=== PATIENT | male | born 1985 | race Caucasian/White ===

== ENCOUNTER 2023-12-05 00:55 | Emergency (ER) | payer OTHER ==
[~2023-12-05] VITALS: Ht 180.3 cm; Wt 90.7 kg
[2023-12-05 07:50] VITALS: BP 128/80
== END 2023-12-05 07:52 | disposition home or self-care (01) ==
LOC: ER 00:55
DX: S01.112A Laceration without foreign body of left eyelid and periocular area, initial encounter (principal); W01.10XA Fall on same level from slipping, tripping and stumbling with subsequent striking against unspecified object, initial encounter; F17.200 Nicotine dependence, unspecified, uncomplicated
CPT/HCPCS: 70450

== ENCOUNTER 2024-02-22 20:44 | Inpatient (IN) | payer OTHER ==
[~2024-02-22] VITALS: Ht 180.3 cm; Wt 84.8 kg
[2024-02-22 22:16] LABS: BASOPHILS ABSOLUTE AUTO 0.12 K/mm3 (0.00-0.23); BASOPHILS PERCENT AUTO 1 % (0-2); EOSINOPHILS ABSOLUTE AUTO 0.23 K/mm3 (0.00-0.68); EOSINOPHILS PERCENT AUTO 2 % (0-6); Hematocrit 29.3 % (37.0-53.0); Hemoglobin 10.3 g/dL (13.5-17.5); IMMATURE GRAN ABSOLUTE AUTO 0.11 K/mm3 (0.00-0.10); IMMATURE GRAN PERCENT AUTO 1 % (0-1); LYMPHOCYTES ABSOLUTE AUTO 4.19 K/mm3 (0.84-5.20); LYMPHOCYTES PERCENT AUTO 29 % (21-46); MONOCYTES ABSOLUTE AUTO 1.22 K/mm3 (0.16-1.47); MONOCYTES PERCENT AUTO 8 % (4-13); Mean Corpuscular HGB 35.2 pg (26.0-34.0); Mean Corpuscular HGB Conc 35.2 g/dL (31.5-36.5); Mean Corpuscular Volume 100 fL (80-100); Mean Platelet Volume 10.4 fL (9.1-12.4); NEUTROPHILS ABSOLUTE AUTO 8.71 K/mm3 (1.96-9.15); NEUTROPHILS PERCENT AUTO 60 % (41-73); Platelet Count 120 K/mm3 (150-400); RDW Coefficient Variation 15.1 % (11.7-14.2); Red Blood Cell Count 2.93 M/mm3 (4.30-5.90); White Blood Cell Count 14.58 K/mm3 (4.00-11.30)
[2024-02-22 22:31] LABS: Albumin, Blood 2.1 g/dL (3.4-5.0); Albumin/Globulin Ratio 0.4 (0.8-1.8); Bilirubin, Total 5.5 mg/dL (0.1-1.0); Bun/Creatinine Ratio 11.9 (12.0-20.0); Creatinine, Blood 0.84 mg/dL (0.60-1.20); Globulin, Blood 5.4 g/dL (2.2-4.0); Potassium, Blood 3.4 mmol/L (3.5-5.5); Total Protein, Blood 7.5 g/dL (6.4-8.2)
[2024-02-23] MEDS ORDERED: Potassium Chloride 20 MEQ/15 ML UDC PO ONE (00:40)
[2024-02-23 01:03] LABS: C-Reactive Protein, High Sens. 13.1 mg/dL (0.000-3.000)
[2024-02-23] MEDS ORDERED: CefTRIAXone Sodium 2,000 MG in NS 100 ML IV ONE (02:10)
[2024-02-23 02:15] LABS: International Normalized Ratio 1.82; Prothrombin Time Results 18.6 Sec (9.7-11.5)
[2024-02-23] MEDS ORDERED: Vancomycin HCL 2,000 MG in NS 500 ML IV ONE (02:30)
[2024-02-23] MEDS ORDERED: Magnesium Hydroxide Conc 10 ML UDC PO PRN (04:15)
[2024-02-23] MEDS ORDERED: Bisacodyl 10 MG Supp PR PRN (04:15)
[2024-02-23] MEDS ORDERED: FLU VACC TS2024-25(6MOS UP)/PF 45 MCG/0.5 ML SYRINGE IM ONE (04:15)
[2024-02-23] MEDS ORDERED: Acetaminophen 325 MG TABLET PO PRN (04:20)
[2024-02-23 05:10] VITALS: BP 108/83
[2024-02-23 05:45] LABS: BASOPHILS ABSOLUTE AUTO 0.12 K/mm3 (0.00-0.23); BASOPHILS PERCENT AUTO 1 % (0-2); EOSINOPHILS ABSOLUTE AUTO 0.22 K/mm3 (0.00-0.68); EOSINOPHILS PERCENT AUTO 2 % (0-6); Hematocrit 28.8 % (37.0-53.0); IMMATURE GRAN ABSOLUTE AUTO 0.07 K/mm3 (0.00-0.10); IMMATURE GRAN PERCENT AUTO 1 % (0-1); LYMPHOCYTES ABSOLUTE AUTO 3.34 K/mm3 (0.84-5.20); LYMPHOCYTES PERCENT AUTO 26 % (21-46); MONOCYTES PERCENT AUTO 8 % (4-13); Mean Corpuscular HGB 34.7 pg (26.0-34.0); Mean Corpuscular HGB Conc 34.7 g/dL (31.5-36.5); Mean Corpuscular Volume 100 fL (80-100); Mean Platelet Volume 11.1 fL (9.1-12.4); NEUTROPHILS ABSOLUTE AUTO 8.07 K/mm3 (1.96-9.15); NEUTROPHILS PERCENT AUTO 63 % (41-73); Platelet Count 111 K/mm3 (150-400); RDW Coefficient Variation 15.1 % (11.7-14.2); Red Blood Cell Count 2.88 M/mm3 (4.30-5.90); White Blood Cell Count 12.82 K/mm3 (4.00-11.30)
--- NOTE | 2024-02-23 05:50 | NUR ---
ADMIT NOTE PT ARRIVED TO FLOOR VIA GURNEY. PT ORIENTED TO UNIT. PERSONAL POSSESSIONS WITH PT. CALENDER WIND UP TENDER HAS BEEN ORDERED. IV ANTIB RX STILL INFUSING. CALL BUTTON WITHIN REACH.
[2024-02-23] MEDS ORDERED: Ketorolac Tromethamine 15mg Vial IV PRN (06:50)
[2024-02-23] MEDS ORDERED: Albumin (Human) 25gm/100ml 100 ML IV ONE (06:50)
[2024-02-23 07:13] LABS: Albumin, Blood 1.9 g/dL (3.4-5.0); Albumin/Globulin Ratio 0.4 (0.8-1.8); Bilirubin, Total 5.2 mg/dL (0.1-1.0); Bun/Creatinine Ratio 12.8 (12.0-20.0); Calcium, Blood 7.6 mg/dL (8.5-10.1); Creatinine, Blood 0.78 mg/dL (0.60-1.20); Globulin, Blood 5.1 g/dL (2.2-4.0); Potassium, Blood 3.3 mmol/L (3.5-5.5)
[2024-02-23 07:33] VITALS: BP 120/77
[2024-02-23] MEDS ORDERED: Sennosides 8.6 MG Tab PO SCH (09:00)
[2024-02-23] MEDS ORDERED: Lactobacil 2-S.Thermo-Bifido 1 1 Cap PO SCH (09:00)
[2024-02-23] MEDS ORDERED: Docusate Sodium 100 MG Cap PO SCH (09:00)
[2024-02-23] MEDS ORDERED: Vancomycin HCL 1,250 MG in NS 250 ML IV SCH (11:00)
[2024-02-23 12:09] LABS: Body Fluid Crystals NEG (NEGATIVE)
[2024-02-23] MEDS ORDERED: NS 250 ML IV PRN (12:20)
[2024-02-23 12:26] LABS: BODY FLUID RBC 0.048 M/mm3 (0-0); RBC Count, Synovial Fluid 48000 /mm3 (0-0); WBC Count, Synovial Fluid 177 /mm3 (0-180)
[2024-02-23] MEDS ORDERED: Magnesium Sulf 2 GM/Water 50ML 50 ML IV ONE (12:55)
[2024-02-23] MEDS ORDERED: Potassium Chl 20MEQ/Water100ML 100 ML IV SCH (12:55)
[2024-02-23 13:00] LABS: Appearance, Synovial Fluid Cloudy (Clear); Color, Synovial Fluid Red (None-P Yel); Eos, Synovial Fluid 2 % (0-2); Lymphs, Synovial Fluid 11 % (0-15); Monocytes/Macrophages, Synovia 10 % (0-65); Neutrophils, Synovial Fluid 77 % (0-24)
[2024-02-23 15:17] VITALS: BP 130/76
[2024-02-23 19:32] VITALS: BP 142/74
[2024-02-23] MEDS ORDERED: CefTRIAXone Sodium 1,000 MG in NS 100 ML IV SCH (21:00)
[2024-02-24 02:12] VITALS: BP 108/90
[2024-02-24 02:33] LABS: BASOPHILS ABSOLUTE AUTO 0.13 K/mm3 (0.00-0.23); BASOPHILS PERCENT AUTO 1 % (0-2); EOSINOPHILS ABSOLUTE AUTO 0.32 K/mm3 (0.00-0.68); EOSINOPHILS PERCENT AUTO 3 % (0-6); Hematocrit 29.1 % (37.0-53.0); Hemoglobin 10.1 g/dL (13.5-17.5); IMMATURE GRAN ABSOLUTE AUTO 0.06 K/mm3 (0.00-0.10); IMMATURE GRAN PERCENT AUTO 1 % (0-1); LYMPHOCYTES ABSOLUTE AUTO 2.44 K/mm3 (0.84-5.20); LYMPHOCYTES PERCENT AUTO 26 % (21-46); MONOCYTES PERCENT AUTO 6 % (4-13); Mean Corpuscular HGB 34.9 pg (26.0-34.0); Mean Corpuscular HGB Conc 34.7 g/dL (31.5-36.5); Mean Corpuscular Volume 101 fL (80-100); Mean Platelet Volume 10.7 fL (9.1-12.4); NEUTROPHILS ABSOLUTE AUTO 5.99 K/mm3 (1.96-9.15); NEUTROPHILS PERCENT AUTO 63 % (41-73); Platelet Count 106 K/mm3 (150-400); RDW Coefficient Variation 14.9 % (11.7-14.2); RDW Standard Deviation 54.9 fL (35.1-46.3); Red Blood Cell Count 2.89 M/mm3 (4.30-5.90); White Blood Cell Count 9.54 K/mm3 (4.00-11.30)
[2024-02-24 02:55] LABS: Vancomycin, Trough 16.2 ug/mL (5.0-10.0)
[2024-02-24 03:32] LABS: Albumin/Globulin Ratio 0.4 (0.8-1.8); Bilirubin, Total 6.3 mg/dL (0.1-1.0); Bun/Creatinine Ratio 11.5 (12.0-20.0); Calcium, Blood 7.7 mg/dL (8.5-10.1); Creatinine, Blood 0.7 mg/dL (0.60-1.20); Globulin, Blood 5.1 g/dL (2.2-4.0); Potassium, Blood 3.7 mmol/L (3.5-5.5); Total Protein, Blood 7.1 g/dL (6.4-8.2)
--- NOTE | 2024-02-24 03:58 | NUR ---
SUMMARY: PT A/OX4, CALLS APPROPRIATELY TO SPECIFY NEEDS AND IS PLEASANT AND COOPERATIVE W/CARE. HE'S UP INDEPENDENTLY IN ROOM AND AMBULATES HALLS AD EULA. L.KNEE REMAINS ERYTHEMATOUS AND SWOLLEN W/PAIN THAT LIMITS ROM AND BLE EDEMA PERSISTS FROM KNEES DOWN, LLE>RLE. PT REFUSED AVAILABLE PAIN MEDS AND IV ABX BEING RECEIVED PER EMAR. CIWA 0. HE'S NSR AT 80'S BPM. VSS/AFEBRILE AND NO ACUTE CHANGES. WCTM AND REPORT TO DAY RN.
[2024-02-24 08:23] VITALS: BP 145/76
[2024-02-24] MEDS ORDERED: Enoxaparin 40 MG/0.4 ML SYR SC SCH (09:00)
[2024-02-24] MEDS ORDERED: OxyCODONE HCL 5 MG TAB PO PRN (10:40)
[2024-02-24] MEDS ORDERED: OXYC5 PO (12:15)
[2024-02-24] MEDS ORDERED: SULTRIDS PO (12:16)
--- NOTE | 2024-02-24 14:14 | NUR ---
DISCHARGE PT DISCHARGED HOME. PT SENT WITH HARD SCRIPT FOR OXYCODONE. COPY IN CHART. PT EDUCATED ON NEW MEDICATIONS AND FOLLOW UP APPOINTMENTS NEEDED. PT EDUCATED THAT HE MAY NEED TO FOLLOW UP IN AN URGENT CARE WHILE HE WAITS TO BE ESTABLISHED WITH A PCP. PT STATES HE UNDERSTANDS. NO OTHER ACUTE CHANGES IN ASSESSMENT AT THIS TIME. PT REFUSED WHEELCHAIR RIDE OUT. DRIVEN HOME BY FRIEND.
== END 2024-02-24 14:11 | disposition home or self-care (01) | DRG 872 ==
LOC: ER 20:44 → MEDS 02-23 04:10 → ENPENDDIS 02-24 11:32 → MEDS 02-24 14:11
PROVIDERS: Emergency Medicine; Family Medicine; Nurse Practitioner Family; Student in an Organized Health Care Education/Training Program; ADMIT Internal Medicine
PROC: 0S9D3ZX Drainage of Left Knee Joint, Percutaneous Approach, Diagnostic (ICD-10-PCS; principal; 2024-02-23)
PROC: 3E03329 Introduction of Other Anti-infective into Peripheral Vein, Percutaneous Approach (ICD-10-PCS; 2024-02-23)
DX: A41.9 Sepsis, unspecified organism (principal); M00.9 Pyogenic arthritis, unspecified; R18.8 Other ascites; K80.12 Calculus of gallbladder with acute and chronic cholecystitis without obstruction; E87.6 Hypokalemia; E83.42 Hypomagnesemia; M79.672 Pain in left foot; G89.29 Other chronic pain; K74.60 Unspecified cirrhosis of liver; K76.0 Fatty (change of) liver, not elsewhere classified; R65.20 Severe sepsis without septic shock; F17.200 Nicotine dependence, unspecified, uncomplicated
CPT/HCPCS: 20610; 36415; 73562-LT; 73630; 76705; 80053; 80202; 83605; 83735; 84100; 85025; 85610; 85651; 85730; 86140; 86141; 87040; 87070; 87075; 87205; 89051; 89060; 93971; 96365-59; 96367-59; 99285-25; A9270; J0696; J1885; J3370; J3475; J3480; J7040; J7050; P9047

== ENCOUNTER 2024-05-02 08:39 | Inpatient (IN) | payer OTHER ==
[~2024-05-02] VITALS: Ht 180.3 cm; Wt 90.1 kg
[~2024-05-02 08:39] MED LIST: OXYC5 PO; SULTRIDS PO
[2024-05-02 10:41] LABS: BASOPHILS ABSOLUTE AUTO 0.15 K/mm3 (0.00-0.23); BASOPHILS PERCENT AUTO 1 % (0-2); EOSINOPHILS ABSOLUTE AUTO 0.28 K/mm3 (0.00-0.68); EOSINOPHILS PERCENT AUTO 2 % (0-6); Hematocrit 31.4 % (37.0-53.0); Hemoglobin 10.7 g/dL (13.5-17.5); IMMATURE GRAN ABSOLUTE AUTO 0.11 K/mm3 (0.00-0.10); IMMATURE GRAN PERCENT AUTO 1 % (0-1); LYMPHOCYTES ABSOLUTE AUTO 2.55 K/mm3 (0.84-5.20); LYMPHOCYTES PERCENT AUTO 22 % (21-46); MONOCYTES ABSOLUTE AUTO 0.69 K/mm3 (0.16-1.47); MONOCYTES PERCENT AUTO 6 % (4-13); Mean Corpuscular HGB 35.5 pg (26.0-34.0); Mean Corpuscular HGB Conc 34.1 g/dL (31.5-36.5); Mean Corpuscular Volume 104 fL (80-100); Mean Platelet Volume 10.1 fL (9.1-12.4); NEUTROPHILS ABSOLUTE AUTO 8.04 K/mm3 (1.96-9.15); NEUTROPHILS PERCENT AUTO 68 % (41-73); Platelet Count 86 K/mm3 (150-400); RDW Standard Deviation 59.2 fL (35.1-46.3); Red Blood Cell Count 3.01 M/mm3 (4.30-5.90); White Blood Cell Count 11.82 K/mm3 (4.00-11.30)
[2024-05-02 10:56] LABS: Albumin, Blood 1.9 g/dL (3.4-5.0); Albumin/Globulin Ratio 0.3 (0.8-1.8); Bilirubin, Total 12.6 mg/dL (0.1-1.0); Bun/Creatinine Ratio 10.8 (12.0-20.0); Calcium, Blood 7.8 mg/dL (8.5-10.1); Creatinine, Blood 0.83 mg/dL (0.60-1.20); Globulin, Blood 6.3 g/dL (2.2-4.0); International Normalized Ratio 2.49; Potassium, Blood 2.8 mmol/L (3.5-5.5); Prothrombin Time Results 24.9 Sec (9.7-11.5); Total Protein, Blood 8.2 g/dL (6.4-8.2)
[2024-05-02] MEDS ORDERED: Pantoprazole Sodium 40 MG Injection IV ONE (13:10)
[2024-05-02] MEDS ORDERED: Pantoprazole Sodium 40 MG in NS 50 ML IV SCH (13:10)
[2024-05-02] MEDS ORDERED: Potassium Chl 20MEQ/Water100ML 100 ML IV ONE (13:50)
[2024-05-02] MEDS ORDERED: Octreotide Acetate 50 MCG in NS 50 ML IV ONE (14:00)
[2024-05-02] MEDS ORDERED: CefTRIAXone Sodium 1,000 MG in NS 100 ML IV ONE (14:05)
[2024-05-02] MEDS ORDERED: Octreotide Acetate 500 MCG in NS 250 ML IV SCH (14:05)
[2024-05-02] MEDS ORDERED: Ondansetron HCl 2 MG / ML 2ML Vial IV PRN (15:55)
[2024-05-02] MEDS ORDERED: TraZODone HCl 50 MG Tab PO PRN (15:55)
[2024-05-02] MEDS ORDERED: NS KCl 20mEq 1,000 ML IV SCH (15:55)
[2024-05-02] MEDS ORDERED: FLU VACC TS2024-25(6MOS UP)/PF 45 MCG/0.5 ML SYRINGE IM PRN (15:55)
[2024-05-02] MEDS ORDERED: Metoclopramide HCl 5MG / ML 2ML Vial IV PRN (16:00)
[2024-05-02 16:52] VITALS: BP 132/75
--- NOTE | 2024-05-02 18:25 | NUR ---
ADMIT TO PCU 18: PATIENT ABLE TO STAND AND TRANSFER TO BED. ALERT AND ORIENTED X4. WEARING GLASSES. DENIES PAINS AT THIS TIME. BILATERAL LOWER EXTREMITY SCABBING, SEE CHART PHOTO. TELE SHOWING SR WITH HR 80'S. DENIES CHEST PAIN/PRESSURE/PALPITATIONS. SEE CHARTED VITALS. ON ROOM AIR SATING ABOVE 95%. DENIES SOB. BOWEL TONES PRESENT. ASCITES NOTED. COMPLAINS OF 3/10 ABDOMINAL PAIN WHEN SITTING STRAIGHT UP, OTHERWISE PAIN RELIEVED WHEN RECLINED. NO BOWEL MOVEMENT ON UNIT AT THIS TIME. URINAL PROVIDED. PROTONIX, POTASSIUM AND SANDOSTATIN INFUSING AT THIS TIME. LAB IN TO DRAW. DR. PATTERSON AT BEDSIDE DURING ADMISSION AND PLAN FOR PATIENT TO EAT TONIGHT AND WATER TOMORROW PRIOR TO SCOPE. DR. PATTERSON TO PLACE ORDERS. CALL LIGHT IN REACH. PATIENT DENIES NEEDS.
[2024-05-02 19:55] VITALS: BP 102/63
--- NOTE | 2024-05-02 20:39 | NUR ---
ASSUMED CARE PT IS A&O X4; SPO2 >92% ON RA; MAP >65; RATE 80-90'S. PT DENIES CP, SOB, AND NAUSEA AT THIS TIME. C/O MILD 1-2/10 ABDOMINAL PAIN WHEN LYING FAT, WORSE WHEN SITTING UP; TENDER W/ PALPATION. PROTONIX, OCTREOTIDE, AND NS W/ KCL INFUSING PER EMAR. PT RESTING QUIETLY AT THIS TIME.
[2024-05-02 23:00] VITALS: BP 106/76
--- NOTE | 2024-05-02 23:30 | NUR ---
UPDATE PHARMACY CONSULTED FOR POTENTIAL PROTONIX INFILTRATION; ORDERS FOR ELEVATION AND WARM COMPRESS. DR RIVERS AWARE. NO REDNESS/PAIN NOTED FROM PT.
[2024-05-02] MEDS ORDERED: Acetaminophen 325 MG TABLET PO PRN (23:40)
[2024-05-03] VITALS (17 sets, daily range): BP systolic 88–129; BP diastolic 58–87
[2024-05-03 04:22] LABS: BASOPHILS ABSOLUTE AUTO 0.12 K/mm3 (0.00-0.23); BASOPHILS PERCENT AUTO 1 % (0-2); EOSINOPHILS ABSOLUTE AUTO 0.36 K/mm3 (0.00-0.68); EOSINOPHILS PERCENT AUTO 4 % (0-6); Hematocrit 26.5 % (37.0-53.0); Hemoglobin 9.1 g/dL (13.5-17.5); Mean Corpuscular HGB Conc 34.3 g/dL (31.5-36.5); Mean Corpuscular Volume 105 fL (80-100); Mean Platelet Volume 10.4 fL (9.1-12.4); Platelet Count 77 K/mm3 (150-400); RDW Coefficient Variation 15.9 % (11.7-14.2); Red Blood Cell Count 2.53 M/mm3 (4.30-5.90); White Blood Cell Count 9.77 K/mm3 (4.00-11.30)
[2024-05-03 04:29] LABS: IMMATURE GRAN ABSOLUTE AUTO 0.08 K/mm3 (0.00-0.10); IMMATURE GRAN PERCENT AUTO 1 % (0-1); LYMPHOCYTES ABSOLUTE AUTO 2.66 K/mm3 (0.84-5.20); LYMPHOCYTES PERCENT AUTO 27 % (21-46); MONOCYTES ABSOLUTE AUTO 0.66 K/mm3 (0.16-1.47); MONOCYTES PERCENT AUTO 7 % (4-13); NEUTROPHILS ABSOLUTE AUTO 5.89 K/mm3 (1.96-9.15); NEUTROPHILS PERCENT AUTO 60 % (41-73)
[2024-05-03 04:38] LABS: Albumin, Blood 1.5 g/dL (3.4-5.0); Albumin/Globulin Ratio 0.3 (0.8-1.8); Bilirubin, Total 9.5 mg/dL (0.1-1.0); Bun/Creatinine Ratio 9.7 (12.0-20.0); Calcium, Blood 7.6 mg/dL (8.5-10.1); Creatinine, Blood 0.82 mg/dL (0.60-1.20); Globulin, Blood 5.1 g/dL (2.2-4.0); Magnesium, Blood 1.8 mg/dL (1.6-2.4); Potassium, Blood 3.9 mmol/L (3.5-5.5); Total Protein, Blood 6.6 g/dL (6.4-8.2)
[2024-05-03 04:47] LABS: International Normalized Ratio 2.69; Prothrombin Time Results 26.7 Sec (9.7-11.5)
--- NOTE | 2024-05-03 06:32 | NUR ---
SHIFT SUMMARY PT RESTING IN BED QUIETLY; ABDOMINAL PAIN UNCHANGED. VSS. PT HAD BM THIS AM AND WAS BLACK PER PT (PT FLUSHED BEFORE THIS RN COULD ASSESS). OCTREOTIDE, PROTONIX, AND NS KCL INFUSING PER EMAR.
--- NOTE | 2024-05-03 11:05 | NUR ---
PATIENT MADE AWARE THAT HE WILL BE NPO FOR THE PROCEDURE THIS AFTERNOON. PATIENT RESTING WITH EVEN AND UNLABORED RESPIRATIONS AND THE BED AT THE LOWEST POSITION WITH THE CALL LIGHT WITHIN REACH.
--- NOTE | 2024-05-03 12:47 | NUR ---
MD AT BEDSIDE AND ASSESSED PATIENT. PATIENT RESTING WITH EVEN AND UNLABORED BREATHING, BED AT LOWEST POSITION AND CALL LIGHT WITHIN REACH.
--- NOTE | 2024-05-03 13:34 | NUR ---
PATIENT LEFT FOR EGD.
[2024-05-03] MEDS ORDERED: Lactated Ringer's 1,000 ML IV SCH (13:35)
[2024-05-03] MEDS ORDERED: Midazolam HCl 1MG / ML 2ML Vial ONE (14:02)
[2024-05-03] MEDS ORDERED: propofoL 20 ML IV ONE (14:02)
[2024-05-03] MEDS ORDERED: Benzocaine Oral Spray 0.5ML UD ONE (14:09)
--- NOTE | 2024-05-03 14:22 | NUR ---
05/03/24 1422 Vandana Mathew CONFIRMED AND REVIEWED H&P, MEDCICATIONS, ALLERGIES, MEDICAL HISTORY, RESPIRATORY HISTORY, VITAL SIGNS, 3-LEAD EKG, CONSENTS, AND PHYSICIAN ORDERS. PATIENT CONFIRMS NPO STATUS AND AGREES WITH SCHEDULED PROCEDURE. MONITOR INTACT WITH CONTINUOUS PULSE OXIMETRY, CAPNOGRAPHY, 3-LEAD EKG, INTERMITTENT BP. SUPPLEMENTAL O2 TO BE TITRATED THROUGHOUT PROCEDURE TO MAINTAIN O2 SATURATION ABOVE 90%. PATIENT DETERMINED TO BE ASA APPROPRIATE FOR PROPOFOL SEDATION PRIOR TO START OF PROCEDURE BY DR. PATTERSON.
--- NOTE | 2024-05-03 16:43 | NUR ---
SHIFT SUMMARY: PATIENT IS MEDICAL WITHOUT TELE STATUS. IS ALERT AND ORIENTED X4 AND ACTIVE IN HIS CARE. SATTING >92% ON ROOM AIR WITH EVEN AND UNLABORED RESPIRATIONS. HAD AN ENDOSCOPY DONE TODAY AND FINDINGS ARE IN THE CHART. PATIENT TOLERATED REGULAR DIET AFTER THE PROCEDURE AND WAS ABLE TO GET SOME REST. AT BEDSIDE. NO EVENTS THROUGHOUT SHIFT WILL CONTINUE TO MONITOR UNTIL CHANGE OF SHIFT TO ONCOMING GROUNDS CREW SUPERVISOR RN.
--- NOTE | 2024-05-03 19:33 | NUR ---
ASSUMED CARE PT IS A&O X4; SPO2 >92% ON RA; MAP >65. PT DENIES CP, SOB, AND NAUSEA AT THIS TIME. C/O OF ABDOMINAL PAIN THAT HAS GOTTEN "SLIGHTLY" WORSE W/ EATING. RESTING QUIETLY AT THIS TIME.
[2024-05-03] MEDS ORDERED: HYDROmorphone HCl/Pf 1MG SYR IV PRN (21:00)
[2024-05-03] MEDS ORDERED: NS 500 ML IV SCH (21:00)
[2024-05-03 21:30] LABS: Hematocrit 27.1 % (37.0-53.0); Hemoglobin 9.2 g/dL (13.5-17.5)
[2024-05-03 21:51] LABS: Bun/Creatinine Ratio 9.9 (12.0-20.0); Calcium, Blood 7.5 mg/dL (8.5-10.1); Creatinine, Blood 0.91 mg/dL (0.60-1.20); Potassium, Blood 3.9 mmol/L (3.5-5.5)
--- NOTE | 2024-05-03 22:01 | NUR ---
UPDATE PT C/O OF SEVERE 10/10 ABDOMINAL PAIN. PT DESCRIBES PAIN A BAND OF PRESSURE ACROSS THE MIDDLE OF THE ABDOMEN AND THE "SAME" ADMIT W/ ACCOMPANYING SOB; SPO2 >92%. DR RIVERS AT BEDSIDE W/ PAIN MED ORDERED AND 2V CXRAY ORDERED. PT IS RESTING QUIETLY AT THIS TIME, DENIES SOB AT THIS TIME.
[2024-05-04 05:05] LABS: BASOPHILS ABSOLUTE AUTO 0.15 K/mm3 (0.00-0.23); BASOPHILS PERCENT AUTO 2 % (0-2); EOSINOPHILS ABSOLUTE AUTO 0.43 K/mm3 (0.00-0.68); EOSINOPHILS PERCENT AUTO 5 % (0-6); Hematocrit 28.6 % (37.0-53.0); Hemoglobin 9.5 g/dL (13.5-17.5); IMMATURE GRAN ABSOLUTE AUTO 0.09 K/mm3 (0.00-0.10); IMMATURE GRAN PERCENT AUTO 1 % (0-1); LYMPHOCYTES ABSOLUTE AUTO 2.31 K/mm3 (0.84-5.20); LYMPHOCYTES PERCENT AUTO 24 % (21-46); MONOCYTES ABSOLUTE AUTO 0.76 K/mm3 (0.16-1.47); MONOCYTES PERCENT AUTO 8 % (4-13); Mean Corpuscular HGB Conc 33.2 g/dL (31.5-36.5); Mean Corpuscular Volume 108 fL (80-100); NEUTROPHILS PERCENT AUTO 61 % (41-73); Platelet Count 76 K/mm3 (150-400); RDW Coefficient Variation 16.5 % (11.7-14.2); RDW Standard Deviation 64.1 fL (35.1-46.3); Red Blood Cell Count 2.64 M/mm3 (4.30-5.90); White Blood Cell Count 9.54 K/mm3 (4.00-11.30)
--- NOTE | 2024-05-04 05:22 | NUR ---
SHIFT SUMMARY BESIDES SEVERE ABDOMINAL PAIN EARLIER IN SHIFT (SEE PT NOTE FOR DETAILS), NO ACUTE EVENTS OVERNIGHT. PAIN IS BACK TO PREVIOUS LEVELS THAT PT HAS BEEN HAVING EARLIER IN SHIFT. VSS.
[2024-05-04 05:41] LABS: Albumin, Blood 1.5 g/dL (3.4-5.0); Albumin/Globulin Ratio 0.3 (0.8-1.8); Bilirubin, Total 9.5 mg/dL (0.1-1.0); Bun/Creatinine Ratio 10.7 (12.0-20.0); Calcium, Blood 7.5 mg/dL (8.5-10.1); Creatinine, Blood 0.84 mg/dL (0.60-1.20); Globulin, Blood 5.1 g/dL (2.2-4.0); Total Protein, Blood 6.6 g/dL (6.4-8.2)
[2024-05-04] MEDS ORDERED: Omeprazole 20 MG CapCR PO SCH (06:00)
[2024-05-04 07:56] VITALS: BP 109/73
--- NOTE | 2024-05-04 09:46 | NUR ---
CALL PLACED TO MD REGARDING PATIENT NPO STATUS AWAITING ORDERS TO BE PLACED.
[2024-05-04] MEDS ORDERED: Sucralfate 1000MG / 10ML UD BTL PO SCH (11:30)
--- NOTE | 2024-05-04 14:46 | NUR ---
CALL PLACED TO MD REGARDING FLUID RESTRICTION AND MED WITH NO TELE STATUS CHANGE. AWAITING ORDERS.
[2024-05-04] MEDS ORDERED: Spironolactone 25 MG Tab PO SCH (14:50)
[2024-05-04] MEDS ORDERED: Furosemide 10 MG/ML 4ML Vial IV SCH (14:52)
[2024-05-04 15:24] VITALS: BP 108/64
--- NOTE | 2024-05-04 16:50 | NUR ---
SHIFT SUMMARY: PATIENT IS MEDICAL WITHOUT TELE STATUS. PATIENT IS ALERT AND ORIENTED X4 AND ACTIVE IN HIS CARE. SATTING >92% ON ROOM AIR, EVEN AND UNLABORED RESPIRATIONS. PATIENT DID NOT HAVE ANY ABDOMINAL PAIN THROUGHOUT THE SHIFT. DIET WAS ADVANCED TOLERATED AND PATIENT SHOWERED TODAY. FAMILY TO BEDSIDE AND PLAN WILL BE POSSIBLE DISCHARGE TOMORROW. NO EVENTS THROUGHOUT SHIFT, WILL CONTINUE TO MONITOR UNTIL HANDOFF REPORT.
[2024-05-04 17:03] LABS: HEPATITIS B SURFACE ANTIBODY <3.10 IU/L
[2024-05-04 17:22] LABS: HEPATITIS B SURFACE ANTIGEN Negative (Negative)
[2024-05-04 17:58] LABS: HBV CORE ANTIBODIES,TOTAL Negative (Negative)
[2024-05-04 19:16] LABS: HEPATITIS A ANTIBODIES, TOTAL Positive (Negative)
[2024-05-04 19:57] LABS: HEPATITIS C AB CIA INTERP Negative (Negative)
[2024-05-04 20:00] VITALS: BP 129/76
--- NOTE | 2024-05-04 21:45 | NUR ---
PT IS ALERT AND ORIENTED X4, PT ABLE TO FOLLOW COMMANDS AND MOVE INDEPENDENTLY IN THE ROOM, AND USES CALL LIGHT APPROPRIATELY. PT HEART RATE IS IN THE 80s, BLOOD PRESSURE STABLE AT 129/76, PT DENIES CHEST PAIN. PT SOUNDS CLEAR, SATTING >92% ON ROOM AIR, PT DENIES SHORTNESS OF BREATH. PT ABDOMEN IS VERY DISTENDED, PT STATES TO SIT UP AND EAT FOOD, PT DENIES N/V, PROVIDER IS AWARE AND PT HAS THOROCENTSIS SCHEDULED FOR IN THE AM. PT DENIES PAIN UPON ASSESSMENT. NO OTHER INTERVENTIONS AT THIS TIME. PLAN OF CARE CONTINUED.
[2024-05-05 04:00] VITALS: BP 128/73
[2024-05-05 05:29] LABS: ANTI-NUCLEAR AB ANA,IGG ELISA None Detected (None Detected)
--- NOTE | 2024-05-05 05:38 | NUR ---
PT SUMMARY PT IS ASLEEP IN BED, PT STILL ALERT AND ORIENTED, FOLLOWING COMMANDS. NO NEW EVENTS TO REPORT OVERNIGHT. PLAN OF CARE CONTINUED.
[2024-05-05 05:40] LABS: FACTIN SMOOTH MUSCLE,IGG ELISA 39 Units (0-19); MITOCHONDRIAL (M2) AB,IGG 7.5 Units (0.0-24.9)
[2024-05-05 07:40] VITALS: BP 124/70
--- NOTE | 2024-05-05 09:40 | NUR ---
AM NOTE: PATIENT ALERT AND ORIENTED X4. UP WITH SBA FOR SAFETY. IND WITH TURNING IN BED. ON ROOM AIR SATING ABOVE 95%. DENIES SOB WHEN LAYING FLAT. PATIENT STATES WHEN SITTING UPRIGHT HE OCCASIONALLY FEELS SOB FROM PRESSURE ON HIS ABDOMIN. NO TELE. MEDICAL STATUS. SBP 120'S. HR 90'S. DENIES CHEST PAIN/PRESSURE/PALPITATIONS. EDEMA NOTED IN BLE. IV SALINE LOCKED. STRICT INTAKE AND OUTPUT. THIS RN EDUCATED PATIENT ON MEASURING. FLUID RESTRICTION OF 1,800ML IN PLACE. BOWEL TONES PRESENT. ABDOMIN DISTENDED WITH ASCITES. PLAN FOR PARACENTESIS THIS AM. ABDOMIN TENDER AND "TIGHT" PER PATIENT. TOLERATING PO DIET. DENIES BLOODY STOOLS THIS AM. SKIN SLIGHTLY JAUNDICED WITH SCATTERED SCABING TO BILATERAL SHINS. CALL LIGHT IN REACH. DENIES NEEDS AT THIS TIME.
--- NOTE | 2024-05-05 09:48 | NUR ---
PLAN FOR PARACENTESIS AT 11AM PER ULTRASOUND. PATIENT UPDATED ON PLAN.
--- NOTE | 2024-05-05 10:34 | NUR ---
THIS RN PLACED CALL TO DR. PAULSON TO REQUEST LAB DRAW ORDERS FOR PT AND INR. ORDERS IN PLACE. IF INR BELOW 2, PARACENTESIS PLAN FOR 2PM. PATIENT UPDATED ON PLAN.
[2024-05-05 11:19] VITALS: BP 120/60
--- NOTE | 2024-05-05 12:07 | NUR ---
DR. PAULSON AT BEDSIDE, THIS RN PRESENT. PLAN FOR INR RESULTS TO DECIDE IF PARACENTESIS WILL HAPPEN AROUND 2PM. FIANCE AT BEDSIDE. NOON VITAL STABLE. PATIENT WOULD LIKE TO GO ON A WALK POST LUNCH. LABS PENDING AT THIS TIME. PATIENT EATING LUNCH. BOWEL MOVEMENT THIS AFTERNOON, NO SIGNS OF BLEEDING. CALL LIGHT IN REACH.
[2024-05-05 12:16] LABS: CERULOPLASMIN 18 mg/dL (15-30)
[2024-05-05 12:23] LABS: Albumin, Blood 1.5 g/dL (3.4-5.0); Albumin/Globulin Ratio 0.3 (0.8-1.8); Bilirubin, Total 10.5 mg/dL (0.1-1.0); Bun/Creatinine Ratio 8.7 (12.0-20.0); Calcium, Blood 7.7 mg/dL (8.5-10.1); Creatinine, Blood 0.81 mg/dL (0.60-1.20); Globulin, Blood 5.3 g/dL (2.2-4.0); Potassium, Blood 3.2 mmol/L (3.5-5.5); Total Protein, Blood 6.8 g/dL (6.4-8.2)
[2024-05-05 12:33] LABS: BASOPHILS ABSOLUTE AUTO 0.13 K/mm3 (0.00-0.23); BASOPHILS PERCENT AUTO 1 % (0-2); EOSINOPHILS ABSOLUTE AUTO 0.45 K/mm3 (0.00-0.68); EOSINOPHILS PERCENT AUTO 4 % (0-6); Hematocrit 27.6 % (37.0-53.0); Hemoglobin 9.7 g/dL (13.5-17.5); IMMATURE GRAN ABSOLUTE AUTO 0.08 K/mm3 (0.00-0.10); IMMATURE GRAN PERCENT AUTO 1 % (0-1); LYMPHOCYTES ABSOLUTE AUTO 2.39 K/mm3 (0.84-5.20); LYMPHOCYTES PERCENT AUTO 19 % (21-46); MONOCYTES ABSOLUTE AUTO 0.96 K/mm3 (0.16-1.47); MONOCYTES PERCENT AUTO 8 % (4-13); Mean Corpuscular HGB 36.3 pg (26.0-34.0); Mean Corpuscular HGB Conc 35.1 g/dL (31.5-36.5); Mean Platelet Volume 10.4 fL (9.1-12.4); NEUTROPHILS PERCENT AUTO 67 % (41-73); Platelet Count 83 K/mm3 (150-400); RDW Standard Deviation 61.7 fL (35.1-46.3); Red Blood Cell Count 2.67 M/mm3 (4.30-5.90); White Blood Cell Count 12.31 K/mm3 (4.00-11.30)
[2024-05-05 12:42] LABS: Mean Corpuscular Volume 103 fL (80-100)
[2024-05-05 12:50] LABS: ALPHA-1-ANTITRYPSIN 107 mg/dL (90-200)
[2024-05-05] MEDS ORDERED: Potassium Chloride 20 MEQ TabCR PO ONE (13:05)
--- NOTE | 2024-05-05 13:05 | NUR ---
THIS RN REPORTED POTASSIUM LAB LEVEL OF 3.[address] PAULSON. ORDERS FOR 40 meq KCL PO X1 NOW. ORDERS IN PLACE. INR STILL PENDING.
[2024-05-05 13:19] LABS: International Normalized Ratio 2.72
--- NOTE | 2024-05-05 13:34 | NUR ---
INR RESULTS CALLED INTO DR. PAULSON AND DR. PATTERSON BY THIS RN. ORDERS TO CANCEL PARACENTESIS. LAND MANAGER,SILVER SOLDERER NAD PATIENT UPDATED ON PLAN.
[2024-05-05] MEDS ORDERED: OMEP20ER PO (14:15)
[2024-05-05] MEDS ORDERED: ALDACTONE25 MG PO (14:15)
[2024-05-05] MEDS ORDERED: SUCRALFATE PO (14:17)
[2024-05-05] MEDS ORDERED: FOLI1 PO (14:17)
[2024-05-05] MEDS ORDERED: POTCHL20ER PO (14:18)
[2024-05-05] MEDS ORDERED: B-1100 MG PO (14:18)
[2024-05-05] MEDS ORDERED: FURO40 PO (14:19)
--- NOTE | 2024-05-05 14:32 | NUR ---
DISCHARGE: NO ACUTE CHANGES, SEE PREVIOUS NOTES. ALL VITAL SIGNS REMAIN STABLE. THIS RN REVIEWED DISCHARGE INSTRUCTION WHICH INCLUDED: NEW MEDICATIONS, MEDICATIONS BEING FAXED TO [facility]. FOLLOW UP WITH PCP AND DR. PATTERSON, AND SIGNS AND SYMPTOMS OF WHEN TO RETURN. IV'S REMOVED. PATIENT LEFT UNIT WITH ALL PERSONAL BELONGINGS VIA WHEELCHAIR.
[2024-05-05 18:24] LABS: SMOOTH MUSCLE AB,IGG TITER <1:20 (<1:20)
== END 2024-05-05 14:46 | disposition home or self-care (01) | DRG 381 ==
LOC: ER 08:39 → ERHOLD 08:40 → PCU 15:53
PROVIDERS: Internal Medicine Gastroenterology; Physician Assistant; Student in an Organized Health Care Education/Training Program; ADMIT Internal Medicine
PROC: 0DJ08ZZ Inspection of Upper Intestinal Tract, Via Natural or Artificial Opening Endoscopic (ICD-10-PCS; principal; 2024-05-03 08:15)
DX: K22.11 Ulcer of esophagus with bleeding (principal); D68.9 Coagulation defect, unspecified; E87.1 Hypo-osmolality and hyponatremia; K76.6 Portal hypertension; K70.31 Alcoholic cirrhosis of liver with ascites; E87.6 Hypokalemia; K70.11 Alcoholic hepatitis with ascites; D69.6 Thrombocytopenia, unspecified; D63.8 Anemia in other chronic diseases classified elsewhere; F17.210 Nicotine dependence, cigarettes, uncomplicated; F10.20 Alcohol dependence, uncomplicated; K44.9 Diaphragmatic hernia without obstruction or gangrene; K31.89 Other diseases of stomach and duodenum; Z71.41 Alcohol abuse counseling and surveillance of alcoholic; Z98.890 Other specified postprocedural states; Z79.891 Long term (current) use of opiate analgesic
CPT/HCPCS: 36415; 74018; 74019; 76700; 80048; 80053; 82103; 82105; 82390; 83735; 85014; 85018; 85025; 85610; 85730; 86015; 86038; 86256; 86381; 86704; 86708; 86803; 87340; 93005; 93010; 93975; 94762; 96365; 96366; 96368; 96375; 96376; 99285-25; A9270; G0378; J0696; J1171; J1940; J2250; J2354; J2470; J2704; J3480; J7050; J7120

== ENCOUNTER 2024-05-18 07:11 | Emergency (ER) | payer OTHER ==
[~2024-05-18] VITALS: Ht 180.3 cm; Wt 95.2 kg
[~2024-05-18 07:11] MED LIST changes: +ALDACTONE25 MG PO; +B-1100 MG PO; +FOLI1 PO; +FURO40 PO; +OMEP20ER PO; +POTCHL20ER PO; +SUCRALFATE PO
[2024-05-18] MEDS ORDERED: SUCRALFATE1 GM/1015 MT (07:16)
[2024-05-18] MEDS ORDERED: Ondansetron HCl 2 MG / ML 2ML Vial IV PRN (07:30)
[2024-05-18 07:40] LABS: BASOPHILS ABSOLUTE AUTO 0.08 K/mm3 (0.00-0.23); BASOPHILS PERCENT AUTO 0 % (0-2); EOSINOPHILS ABSOLUTE AUTO 0.04 K/mm3 (0.00-0.68); EOSINOPHILS PERCENT AUTO 0 % (0-6); Hematocrit 26.4 % (37.0-53.0); Hemoglobin 9.2 g/dL (13.5-17.5); IMMATURE GRAN PERCENT AUTO 2 % (0-1); LYMPHOCYTES ABSOLUTE AUTO 2.35 K/mm3 (0.84-5.20); LYMPHOCYTES PERCENT AUTO 13 % (21-46); MONOCYTES ABSOLUTE AUTO 1.64 K/mm3 (0.16-1.47); MONOCYTES PERCENT AUTO 9 % (4-13); Mean Corpuscular HGB 36.5 pg (26.0-34.0); Mean Corpuscular HGB Conc 34.8 g/dL (31.5-36.5); Mean Corpuscular Volume 105 fL (80-100); Mean Platelet Volume 10.5 fL (9.1-12.4); NEUTROPHILS ABSOLUTE AUTO 14.26 K/mm3 (1.96-9.15); NEUTROPHILS PERCENT AUTO 76 % (41-73); NRBC ABSOLUTE 0.03 K/mm3 (0.00-0.02); NRBC Auto 0.2 /100 WBC (0.0-0.2); Platelet Count 88 K/mm3 (150-400); RDW Coefficient Variation 15.6 % (11.7-14.2); RDW Standard Deviation 56.7 fL (35.1-46.3); Red Blood Cell Count 2.52 M/mm3 (4.30-5.90); White Blood Cell Count 18.77 K/mm3 (4.00-11.30)
[2024-05-18] MEDS ORDERED: Octreotide Acetate 50 MCG in NS 50 ML IV ONE (07:40)
[2024-05-18] MEDS ORDERED: Octreotide Acetate 500 MCG in NS 250 ML IV SCH (07:40)
[2024-05-18] MEDS ORDERED: Pantoprazole Sodium 40 MG Injection IV ONE (07:40)
[2024-05-18] MEDS ORDERED: CefTRIAXone Sodium 1,000 MG in NS 50 ML IV ONE (07:40)
[2024-05-18] MEDS ORDERED: Tranexamic Acid 100 ML IV ONE (08:40)
[2024-05-18] MEDS ORDERED: Ondansetron HCl 2 MG / ML 2ML Vial IV ONE (08:40)
[2024-05-18 08:56] LABS: Albumin, Blood 0.9 g/dL (3.4-5.0); Albumin/Globulin Ratio 0.3 (0.8-1.8); Bilirubin, Total 8.5 mg/dL (0.1-1.0); Bun/Creatinine Ratio 15.4 (12.0-20.0); Calcium, Blood 5.2 mg/dL (8.5-10.1); Creatinine, Blood 0.59 mg/dL (0.60-1.20); Globulin, Blood 3.5 g/dL (2.2-4.0); Potassium, Blood 2.9 mmol/L (3.5-5.5); Total Protein, Blood 4.4 g/dL (6.4-8.2)
[2024-05-18 09:39] LABS: Prothrombin Time Results 32.3 Sec (9.7-11.5)
[2024-05-18 09:44] LABS: International Normalized Ratio 3.3
[2024-05-18 11:54] LABS: Calcium, Ionized (POC) 0.98 mmol/L (1.10-1.46); Chloride (POC) 89 mmol/L (98-108); Creatinine (POC) 1.2 mg/dL (0.8-1.3); Glucose (ISTAT POC) 96 mg/dL (70-99); Hemoglobin (POC) 9.2 g/dL (13.5-17.5); Potassium (POC) 3.6 mmol/L (3.5-5.5); Sodium (POC) 128 mmol/L (135-148); Total CO2 (POC) 26 mmol/L (21-32)
[2024-05-18 13:00] VITALS: BP 106/65
== END 2024-05-18 13:27 | disposition short-term general hospital (02) ==
LOC: ER 07:11
PROVIDERS: Emergency Medicine
DX: K92.2 Gastrointestinal hemorrhage, unspecified (principal); K70.30 Alcoholic cirrhosis of liver without ascites; Z79.01 Long term (current) use of anticoagulants; F17.200 Nicotine dependence, unspecified, uncomplicated; Z79.899 Other long term (current) drug therapy
CPT/HCPCS: 36430; 71045; 80047; 80053; 83690; 85014; 85025; 85610; 85730; 86850; 86900; 86901; 86920; 93005; 93010; 96365; 96366; 96367; 96375; 99285-25; J0696; J2354; J2405; J2470; J7050; P9016